=== PATIENT | female | born 1985 | race Caucasian/White ===

== ENCOUNTER 2024-04-02 10:14 | Emergency (ER) | payer OTHER, SELFPAY ==
[2024-04-02] VITALS (7 sets, daily range): BP systolic 114–135; BP diastolic 58–78; PULSE 52–61; RESP 12–16; TEMP 36.4–36.8; O2SAT 95–99; BMI 32.6
--- NOTE | ~2024-04-02 | US_ITS ---
EXAMINATION: US PELVIS CLINICAL INFORMATION: Over intorsion/abscess. COMPARISON: None available. TECHNIQUE: Ultrasound of the pelvis is performed using both transabdominal and transvaginal transducers along with Doppler. Transvaginal imaging is performed due to inadequate visualization transabdominally. FINDINGS: Uterus: The uterus is anteverted , anteflexed and measures 8.8 x 3.2 x 5.3 cm. The double wall endometrial thickness is 1.4 cm. The uterus is smooth in contour and has normal myometrial echogenicity. No visible fibroid. There is minimal fluid seen within the cervical canal. Adnexa: Both ovaries are visualized. There is normal color flow to the adnexa. There is no ovarian torsion. There is no pelvic ascites or fluid collection. Right ovary measures 12.0 x 8.4 x 7.6 cm. Volume 47 mL. There is an anechoic multiloculated cyst with thick septation measuring 11.0 x 8.1 x 7.9 cm. There is normal arterial and venous flow seen on Doppler exam. Left ovary measures 3.8 x 2.8 x 3.0 cm. Volume 16.7 mL. There is small anechoic follicular cysts. Normal arterial and venous flow seen on Doppler exam. There is minimal free fluid in the cul-de-sac. US/US pelvic and transvaginal IMPRESSION: Multiloculated complex cyst with thick septation in right ovary. No solid component is seen by ultrasound Recommend follow-up ultrasound after 2-3 cycles. Small follicular cysts left ovary. Uterus is unremarkable. Minimal free fluid in the cervix. Small amount of free fluid in the cul-de-sac. Electronically signed by: Marcellus Knowles MD 04/02/2024 07:30 PM EDT
--- NOTE | ~2024-04-02 | US_ITS ---
EXAMINATION: US PELVIS CLINICAL INFORMATION: Over intorsion/abscess. COMPARISON: None available. TECHNIQUE: Ultrasound of the pelvis is performed using both transabdominal and transvaginal transducers along with Doppler. Transvaginal imaging is performed due to inadequate visualization transabdominally. FINDINGS: Uterus: The uterus is anteverted , anteflexed and measures 8.8 x 3.2 x 5.3 cm. The double wall endometrial thickness is 1.4 cm. The uterus is smooth in contour and has normal myometrial echogenicity. No visible fibroid. There is minimal fluid seen within the cervical canal. Adnexa: Both ovaries are visualized. There is normal color flow to the adnexa. There is no ovarian torsion. There is no pelvic ascites or fluid collection. Right ovary measures 12.0 x 8.4 x 7.6 cm. Volume 47 mL. There is an anechoic multiloculated cyst with thick septation measuring 11.0 x 8.1 x 7.9 cm. There is normal arterial and venous flow seen on Doppler exam. Left ovary measures 3.8 x 2.8 x 3.0 cm. Volume 16.7 mL. There is small anechoic follicular cysts. Normal arterial and venous flow seen on Doppler exam. There is minimal free fluid in the cul-de-sac. US/US pelvic ovarian doppler IMPRESSION: Multiloculated complex cyst with thick septation in right ovary. No solid component is seen by ultrasound Recommend follow-up ultrasound after 2-3 cycles. Small follicular cysts left ovary. Uterus is unremarkable. Minimal free fluid in the cervix. Small amount of free fluid in the cul-de-sac. Electronically signed by: Marcellus Knowles MD 04/02/2024 07:30 PM EDT
--- NOTE | ~2024-04-02 | CT_ITS ---
EXAMINATION: CT ABDOMEN AND PELVIS WITH CONTRAST CLINICAL INFORMATION: Right lower quadrant abdominal pain COMPARISON: None available. TECHNIQUE: Multidetector volumetric images were obtained from the superior aspect of the liver through the pubic symphysis following administration 85 mL of Omnipaque 350 intravenous contrast. Sagittal and coronal reformatted images were obtained on the technologist's workstation. Oral contrast: No This CT examination was performed using dose optimization techniques as appropriate, variously including the following: *Automated exposure control *Adjustment of mA and/or kV according to patient size (this includes techniques or standardized protocols for targeted exams where dose is matched to indication/reason for exam; i.e. extremities or head) *Use of iterative reconstruction technique DLP: 698 mGy-cm FINDINGS: LUNG BASES: The visualized lung bases are unremarkable. LIVER, GALLBLADDER, AND BILIARY TREE: Right lobe measures 17 cm. Normal attenuation. No focal hepatic lesion or biliary ductal dilatation is present. The gallbladder is unremarkable with no evidence of radiopaque gallstones, gallbladder wall thickening, or obvious pericholecystic inflammatory changes. PANCREAS: Unremarkable. SPLEEN: Unremarkable. ADRENAL GLANDS: Unremarkable. KIDNEYS AND URETERS: The kidneys are normal in size, shape, and attenuation. No hydronephrosis, hydroureter, or calculi seen. No perinephric stranding. BLADDER: Unremarkable. GASTROINTESTINAL TRACT: Stomach is nondistended. No dilated small or large bowel loops. No acute bowel inflammatory changes are identified. Appendix appears unremarkable. No free fluid. No free air. ABDOMINAL WALL: No significant hernia is appreciated. LYMPH NODES: No pathologically enlarged lymph nodes identified. VASCULAR: Normal caliber aorta. PELVIC VISCERA: Limited incomplete evaluation of the pelvic viscera on CT. There is a large cystic mass, positioned in the central/lateral aspect of the lower abdomen and pelvis. This measures approximately 7.3 x 10.5 x 10.4 cm (AP, transverse, craniocaudal). The mass is predominantly cystic, with internal septations. Some internal calcification present, in part associated with the septations. There are solid components along the posterior-inferior aspect of the mass. This of indeterminate etiology. This could represent a complex ovarian mass. Differential considerations include neoplastic etiologies. The uterus is anteverted, with low attenuation centrally, which could reflect endometrium or fluid. The ovaries are not well evaluated. OSSEOUS STRUCTURES: No acute or suspicious osseous abnormality. CT/CT abdomen pelvis w IV con IMPRESSION: Large complex cystic mass in the lower abdomen and pelvis measuring 7.3 x 10.5 x 10.4 cm. The mass has cystic components with septations, calcifications, and solid components as detailed above.. This of indeterminate etiology. Differential considerations include a complex ovarian mass. Neoplastic etiologies are in the differential. Further evaluation recommended. Recommend gynecological consultation. Recommend further evaluation with ultrasound. MRI with and without contrast may be needed for further evaluation. The ovaries are not well evaluated. Recommend further evaluation with pelvic ultrasound. Fleischner guidelines were followed. Electronically signed by: Gus Falcon MD 04/02/2024 04:55 PM EDT
[2024-04-02 11:37] LABS: MANUAL DIFF FLAG NO
[2024-04-02 11:40] LABS: Basophils Percent Auto 0.6 % (0-2); Eosinophils Absolute Auto 0.1 X10*3/uL (0.0-0.4); Eosinophils Percent Auto 1.6 % (0-4); Hematocrit 39.3 % (37.0-47.0); Hemoglobin 13.4 g/dl (12.0-16.0); Imm Gran Abs Auto 0.02 X10*3/uL (0.00-0.03); Imm Gran Pct Auto 0.3 % (0.0-0.4); Lymphocytes Absolute Auto 2.3 X10*3/uL (1.2-4.9); Lymphocytes Percent Auto 35.4 % (20-40); Mean Corpuscular HGB Conc 34.1 g/dl (31.0-35.0); Mean Corpuscular Hemoglobin 30.8 pg (27.0-33.0); Mean Corpuscular Volume 90.3 fL (80.0-98.0); Mean Platelet Volume 10.1 fL (9.4-12.3); Monocytes Absolute Auto 0.4 X10*3/uL (0.1-1.2); Monocytes Percent Auto 6.7 % (2-11); Neutrophils Absolute Auto 3.5 x10*3/uL (2.0-8.3); Neutrophils Percent Auto 55.4 % (45-73); Platelet Count 232 X10*3/uL (160-400); Red Blood Count 4.35 X10*6/uL (4.20-5.50); Red Cell Distribution Width 13.3 % (11.0-16.0); White Blood Count 6.4 X10*3/uL (4.8-10.8)
[2024-04-02 11:40] LABS: Appearance Urine Clear; Color Urine Straw; Glucose Urine UA Negative (Negative); Leukocyte Esterase Urine Negative (Negative); Nitrite Urine Negative (Negative); Specific Gravity - Urine <= 1.005 (1.005-1.025); Urine Blood Negative (Negative); Urine Ketones Negative (Negative); Urine Protein Negative (Neg-Trace)
[2024-04-02 11:44] LABS: UPreg QC Valid YES; Urine Pregnancy NEGATIVE (NEGATIVE)
[2024-04-02 11:51] LABS: Anion Gap 11 (12-20); Blood Urea Nitrogen 7 mg/dL (9-16); Calcium 9.5 mg/dL (8.4-10.2); Carbon Dioxide 25 mmol/L (22-29); Chloride 107 mmol/L (96-108); Creatinine Clr Calc Pharmacy 119.1; Estimated Glomerular Filt Rate > 60; Glucose Random 103 mg/dL (60-115); Potassium 4.1 mmol/L (3.3-5.1); Sodium 139 mmol/L (135-145)
--- NOTE | 2024-04-02 14:02 | ED.GENADULT ---
HPI - General Adult General Chief complaint: Abdominal Pain Stated complaint: abd pain Time Seen by Provider: 04/02/24 14:02 Source: patient Mode of arrival: ambulatory Limitations: no limitations History of Present Illness ED Provider: Ashlyn Navarro PA-C HPI narrative: 38 yo female presents with lower abdominal pain, was sent from urgent care due to suspected appendicitis. She says that this morning at around 1 am she was woken up by severe lower abdominal pain radiating superiorly and towards her back. She says that the pain is 8/10 and comes in waves. Pain is associated with nausea and vomiting, denies hematemesis. She had chills yesterday, today denies fever, systemic symptoms. Has not been able to retain food or drink. Onset (ago): hour(s) Location: abdomen Radiation: back Quality: sharp Pain Consistency: intermittent Relieving factors: none Exacerbating factors: none Associated symptoms: nausea/vomiting Treatments prior to arrival: none Related Data Previous Rx's ?Medication ?Instructions ?Recorded naproxen 500 mg tablet 500 mg PO BID PRN pain 7 days #14 04/02/24 tabs oxycodone 5 mg capsule 5 mg PO TID PRN pain 3 days #9 caps 04/02/24 Allergies Allergy/AdvReac Type Severity Reaction Status Date / Time No Known Allergies Allergy Verified 04/02/24 10:55 Review of Systems Constitutional: Constitutional: Reports no additional constitutional complaints, Reports chills, Denies fever(s) and Denies night sweats Eyes: Eyes: Reports no additional eye complaints, Denies blurry vision, Denies change in vision, Denies diplopia, Denies eye discharge, Denies loss of vision and Denies eye pain ENT: Denies dizziness Cardiovascular: Cardiovascular: Reports no additional cardiovascular complaints, Denies chest pain, Denies lightheadedness, Denies Loss of Consciousness and Denies dyspnea Respiratory: Respiratory: Reports no additional respiratory complaints and Denies dyspnea Gastrointestinal: Gastrointestinal: Reports abdominal pain, Denies hematochezia, Denies change in bowel habits, Denies change in stool character, Denies coffee ground emesis, Reports GI cramping, Denies diarrhea, Reports nausea, Reports vomiting and Denies hematemesis Genitourinary: Genitourinary: Denies hematuria, Denies urinary frequency, Denies dysuria, Denies urinary incontinence, Denies urinary hesitancy and Denies urinary urgency Musculoskeletal: Musculoskeletal: Reports no additional musculoskeletal complaints, Denies numbness and Denies tingling Neurologic: Denies dizziness, Denies loss of vision, Denies numbness and Denies tingling Psychiatric: Psychiatric: Reports no additional psychiatric complaints Endocrine: Endocrine: Reports no additional endocrine complaints Hematologic/Lymphatic: Hematologic/Lymphatic: Reports no additional hematologic/lymphatic complaints Allergic/Immunologic: Allergic/Immunologic: Reports no additional allergic/immunologic complaints PMFSH Past Medical History Attestation statement: The following information was validated with the patient. Source: old records reviewed and nursing notes reviewed Physical Exam ED Vital Signs: Vital Signs - 24 hr 04/02/24 10:53 04/02/24 14:15 04/02/24 16:30 Temperature 97.5 F 98.3 F 98.1 F Pulse Rate 61 58 57 Respiratory Rate 16 12 12 Blood Pressure 121/66 135/78 129/68 Pulse Oximetry 99 95 99 Oxygen Delivery Method Room Air Room Air 04/02/24 18:04 04/02/24 20:18 Temperature 98 F 98.3 F Pulse Rate 52 54 Respiratory Rate 16 16 Blood Pressure 114/66 117/58 L Pulse Oximetry 98 98 Oxygen Delivery Method Room Air Room Air BMI result Body Mass Index 32.6 Const General: cooperative, no acute distress, alert and awake Nutritional Appearance: well nourished Orientation/consciousness: patient oriented x3 Limitations: no limitations HENMT Head: Yes normal to inspection and Yes atraumatic Ears: hearing grossly normal bilaterally and external ears normal General nose exam: Normal external nose present, no nasal discharge noted and no epistaxis Face and sinus: Yes normal facial exam, No abrasion and No laceration Mouth: Normal oral and palatal mucosa present, no drooling and no muffled voice Eyes General: appearance normal, both eyes and all related structures Periorbital: periorbital findings normal Eyelids: Yes eyelids normal Conjunctivae: conjunctivae normal Pupils: Equal, round and reactive pupils present EOM: EOMs intact bilaterally Neck Neck: Yes normal visual inspection, Yes full ROM and Yes no lymphadenopathy Chest Chest palpation & inspection: normal inspection of the chest Resp Effort & Inspection: normal respiratory effort and able to speak in complete sentences Auscultation: clear to auscultation bilaterally Cardio Jugular venous distension: no JVD Rate: regular rate Rhythm: regular rhythm Heart sounds: S1 normal heart sound present and S2 normal heart sound present GI Inspection: Yes normal to inspection Palpation (GI): Soft to palpation, Tenderness to palpation present (GI), no guarding, not rigid, Rebound tenderness present (At RLQ) and Other GI palpation findings present (+Rovsing Sign) Percussion: Yes normal to percussion Auscultation: normal bowel sounds Abdomen image: 1. Area of point tenderness to palpation. Neuro General: patient oriented x3 and moves all extremities Cranial nerves: Yes Equal, round and reactive pupils present Cognition (Neuro): normal cognition Extrem General: Yes normal to inspection, Yes full ROM and Yes capillary refill normal Psych Appearance: grossly normal Mental Status: mental status grossly normal Affect: normal affect Attitude: cooperative Thought process: Normal thought process present Thought content: Normal thought content present Insight: Good insight present (Psych) Course Reevaluation(s) Reevaluation #1: Presently has no pain abdomen exam is benign. Pelvic ultrasound states no torsion. Case was discussed with Dr. Madison who states since patient has no pain and tolerate p.o. patient could be discharged. He recommends patient should be educated on follow-up outpatient with [facility] she will need workup to rule out uterine/ovarian cancer. Patient made aware of possible diagnosis of malignancy due to consistency and size of cyst. Patient was given copy of labs and imaging and when will call [facility]. Patient is educated torsion and tubo ovarian abscess and to return to the ED or [facility] Time: 10:02 Medications Administered Discontinued Medications Generic Name Dose Route Start Last Admin Trade Name Freq PRN Reason Stop Dose Admin Sodium Chloride 1,000 mls @ 999 mls/hr 04/02/24 14:30 04/02/24 18:00 Ns IV 04/02/24 15:30 Infused .Q1H1M SU Infusion Iohexol 85 ml 04/02/24 15:18 04/02/24 15:18 Iohexol 350 Mg/Ml 75 Ml Infus..Btl IV 04/02/24 15:19 85 ml ONCE ONE Administration Medical Decision Making Medical Decision Making MDM Narrative: 38 yo female with history of hypothyroidism presents from urgent care for right sided lower abdominal pain. Pain woke her up around 1 am, has been persistent through the day, 8/10 intermittent sharp pain localized in RLQ. Has been nauseous, vomiting, denies hematemesis, diarrhea or constipation. Denies fever, systemic symptoms. On exam, has no rigidity or guarding, does have rebound tenderness in RLQ and + Rovsing sign. VSS, labs WNL, no leukocytosis. CT abdomen/pelvis pending. Patient signed out to evening MARIA ELENA. Differential Diagnosis Differential Diagnoses: The differential diagnosis associated with the presentation includes Appendicitis Abdominal pain Nausea Vomiting Ovarian cyst Uterine fibroid Admission/Observation Consideration of admission/observation: Escalation of care including admission/observation considered Patient's disposition will be determined after CT read. Lab Data [facility] Lab Attestation statement: I reviewed the patient's lab results. My interpretation of these results are in the [facility] Rationale portion of this note. 04/02/24 11:24 04/02/24 11:24 Labs: Lab Results 04/02/24 04/02/24 04/02/24 Range/Units 11:24 11:29 11:30 WBC 6.4 (4.8-10.8) X10*3/uL RBC 4.35 (4.20-5.50) X10*6/uL Hgb 13.4 (12.0-16.0) g/dl Hct 39.3 (37.0-47.0) % MCV 90.3 (80.0-98.0) fL MCH 30.8 (27.0-33.0) pg MCHC 34.1 (31.0-35.0) g/dl RDW 13.3 (11.0-16.0) % Plt Count 232 (160-400) X10*3/uL MPV 10.1 (9.4-12.3) fL Immature Gran % (Auto) 0.3 (0.0-0.4) % Neut % (Auto) 55.4 (45-73) % Lymph % (Auto) 35.4 (20-40) % Tillman % (Auto) 6.7 (2-11) % Eos % (Auto) 1.6 (0-4) % Baso % (Auto) 0.6 (0-2) % Lymph # (Auto) 2.3 (1.2-4.9) X10*3/uL [place]man # (Auto) 0.4 (0.1-1.2) X10*3/uL Eos # (Auto) 0.1 (0.0-0.4) X10*3/uL Baso # (Auto) 0.0 (0.0-0.2) X10*3/uL Abs Immat Gran (auto) 0.02 (0.00-0.03) X10*3/uL Absolute Neuts (auto) 3.5 (2.0-8.3) x10*3/uL Absolute Nucleated RBC 0.000 (0.0-0.012) X10*3/uL Nucleated RBC % (auto) 0.0 (0.0-0.2) /100WBC Sodium 139 (135-145) mmol/L Potassium 4.1 (3.3-5.1) mmol/L Chloride 107 (96-108) mmol/L Carbon Dioxide 25 (22-29) mmol/L Anion Gap 11 L (12-20) BUN 7 L (9-16) mg/dL Creatinine 0.68 (0.5-1.4) mg/dL Estim Creat Clear Calc 119.1 Estimated GFR > 60 Random Glucose 103 (60-115) mg/dL Calcium 9.5 (8.4-10.2) mg/dL Urine Color Straw Urine Appearance Clear Urine pH 7.0 (5.0-9.0) Ur Specific [place] <= 1.005 (1.005-1.025) Urine Protein Negative (Neg-Trace) mg/dL Urine Glucose (UA) Negative (Negative) mg/dL Urine Ketones Negative (Negative) mg/dL Urine Blood Negative (Negative) Urine Nitrite Negative (Negative) Ur Leukocyte Esterase Negative (Negative) Urine Test NEGATIVE (NEGATIVE) Discharge Plan Discharge Clinical Impression: Abdominal pain, Ovarian cyst Patient Disposition: Home, Self-Care Instructions: Ovarian Cyst (ED) Additional Instructions: You need to follow-up as soon as possible with [facility] [facility] ?[id number] [id number]. Return to the ED immediately for any abdominal pain, flank pain, vaginal discharge, vaginal bleeding, nausea, vomiting, back pain, or any other concerning symptoms. Prescriptions: New oxycodone 5 mg capsule 5 mg PO TID PRN (Reason: pain) 3 Days Qty: 9 0RF Rx Instructions: Partial Fill upon patient request. side effect is drowsiness. naproxen 500 mg tablet 500 mg PO BID PRN (Reason: pain) 7 Days Qty: 14 0RF Stand Alone Forms: Work/School Release Interventions: ED Discharge Assessment Last Done: 04/02/24 22:25 Discharge Date/Time: 04/02/24 22:26 Print Language: Fijian
[2024-04-02] MEDS: 0.9 % Sodium Chloride 1,000 ML 999 ML IV (15:06)
--- NOTE | 2024-04-02 15:06 | PC.NURSE ---
late charting due to patient care, patient presents through external triage with cc of lower abdominal pain, radiating from the right side to her lower back, intermittently since yesterday, patient states the pain comes and goes, since being here patient states she had an episode where the pain got so bad that she get nauseous. patient is alert and oriented x4, able to ambulate to bathroom, denies any difficulty urinating or constipation or diarrhea, states her last bowel movement was yesterday and it was normal. denies any burning or other urinary sx. denies fevers, discharge or blood noted in her urine. abdomen is soft, tender to palpation to RLQ. LSCTA. 18g PIV placed in RAC at this time,patient awaiting CT scan. plan of care remains ongoing
[2024-04-02] MEDS: iohexoL 350 MG/ML 75 ML INFUS..BTL 85 ML IV (15:18)
--- NOTE | 2024-04-02 18:31 | PC.NURSE ---
ultrasound at bedside
--- NOTE | 2024-04-02 20:31 | P.CONOB_ITS ---
TUBE PUSHER - CN: HPI Data of Consult Consult date: 04/02/24 Primary Care Provider: Kristyn Ham MD Consult Narrative Narrative: I was consulted Radha Doyle who is a 38 year old female presented to emergency room with lower abdominal pain that started acutely and suddenly at 01:00, the pain was associated with nausea and vomiting. In addition, the patient states that she has been having heavy menstrual cycles over the last few months. In the emergency room the following workup was done CBC, urine test which was negative, UA and chemistry in addition to pelvic ultrasound and CT scan. The patient is currently doing well with no pain, no additional complaints, no nausea or vomiting. cc:: CC: OB [facility] Social History Social History Smoked in Last 30 Days: No Use of substances other than those prescribed or required for medical reasons: No Advance Directives: No Advance Directives Information Provided: No Do you have a plan to hurt others: No Plan Patient : No Meds Allergies Allergy/AdvReac Type Severity Reaction Status Date / Time No Known Allergies Allergy Verified 04/02/24 10:55 TUBE PUSHER Physical Exam Vitals Vital signs: Temp Pulse Resp BP Pulse Ox O2 Del Method 98.3 F 54 16 117/58 L 98 Room Air 04/02/24 20:18 04/02/24 20:18 04/02/24 20:18 04/02/24 20:18 04/02/24 20:18 04/02/24 20:18 BMI result Body Mass Index 32.6 Additional Comments: Abdominal exam reported by BRIDGER Kaye as the following : abdomen soft nontender no rebound no guarding TUBE PUSHER - Results Labs 04/02/24 11:24 04/02/24 11:24 Labs: Short CBC 04/02/24 Range/Units 11:24 WBC 6.4 (4.8-10.8) X10*3/uL Hgb 13.4 (12.0-16.0) g/dl Hct 39.3 (37.0-47.0) % Plt Count 232 (160-400) X10*3/uL BMP 04/02/24 11:24 Sodium 139 Potassium 4.1 Chloride 107 Carbon Dioxide 25 BUN 7 L Creatinine 0.68 Calcium 9.5 Urine 04/02/24 04/02/24 Range/Units 11:29 11:30 Urine Color Straw Urine Appearance Clear Urine pH 7.0 (5.0-9.0) Ur Specific [place] <= 1.005 (1.005-1.025) Urine Protein Negative (Neg-Trace) mg/dL Urine Glucose (UA) Negative (Negative) mg/dL Urine Test NEGATIVE (NEGATIVE) Imaging CT scan - pelvis: Radiologist's impression: ITS Impressions Abdomen/Pelvis CT 04/02/24 15:09 IMPRESSION: Large complex cystic mass in the lower abdomen and pelvis measuring 7.3 x 10.5 x 10.4 cm. The mass has cystic components with septations, calcifications, and solid components as detailed above.. This of indeterminate etiology. Differential considerations include a complex ovarian mass. Neoplastic etiologies are in the differential. Further evaluation recommended. Recommend gynecological consultation. Recommend further evaluation with ultrasound. MRI with and without contrast may be needed for further evaluation. The ovaries are not well evaluated. Recommend further evaluation with pelvic ultrasound. Fleischner guidelines were followed. Electronically signed by: Gus Falcon MD 04/02/2024 04:55 PM EDT RP Doppler Study Ultrasound 04/02/24 17:23 IMPRESSION: Multiloculated complex cyst with thick septation in right ovary. No solid component is seen by ultrasound Recommend follow-up ultrasound after 2-3 cycles. Small follicular cysts left ovary. Uterus is unremarkable. Minimal free fluid in the cervix. Small amount of free fluid in the cul-de-sac. Electronically signed by: Marcellus Knowles MD 04/02/2024 07:30 PM EDT Pelvic/Transvag US 04/02/24 18:12 IMPRESSION: Multiloculated complex cyst with thick septation in right ovary. No solid component is seen by ultrasound Recommend follow-up ultrasound after 2-3 cycles. Small follicular cysts left ovary. Uterus is unremarkable. Minimal free fluid in the cervix. Small amount of free fluid in the cul-de-sac. Electronically signed by: Marcellus Knowles MD 04/02/2024 07:30 PM EDT Assessment and Plan (1) Complex ovarian cyst: Status: Acute Discussed with BRIDGER Kaye in the emergency room the following: Differential diagnosis of large complex ovarian cyst with thick septation includes but not limited to: benign, pre and malignant ovarian neoplasm. Since the patient is pain-free with no nausea and vomiting, recommended to give the patient warning signs of ovarian rupture or torsion, she is to come back to emergency room in case of recurrence abdominal pelvic pain, nausea or vomiting, fever or chills and follow-up in the outpatient clinic [facility] at [facility] were gynecologic Onc service is available since [facility] does not have architecture analyst Oncology service . (2) Abnormal uterine bleeding: Status: Acute Recommended to follow-up in the outpatient for workup for abnormal uterine bleeding including endometrial biopsy to rule out pathology including hyperplasia malignancy. Instructions to be given to patient to come back case of heavy vaginal otherwise follow-up in the outpatient clinic [facility]. I spent a total of 20 minutes reviewing the chart, communicating to the emergency room provider and documenting record.
== END 2024-04-02 22:26 | disposition home or self-care (01) ==
PROVIDERS: Emergency Provider Student in an Organized Health Care Education/Training Program; PCP Internal Medicine
DX: N83.201 Unspecified ovarian cyst, right side (principal); R10.31 Right lower quadrant pain; R10.2 Pelvic and perineal pain; R11.2 Nausea with vomiting, unspecified; Z79.899 Other long term (current) drug therapy
CPT/HCPCS: 36415; 74177; 76830; 76856; 80048; 81003; 81025; 85025; 93975; 96360; 96361; 99285; Q9967